=== PATIENT | female | born 1955 | race Caucasian/White ===

== ENCOUNTER → 2020-09-03 | Outpatient (CLI) | payer MEDICARE, OTHER ==
[~2020-09-03] MED LIST: ASPIRIN EC81 M1 PO; CARAFATE 11 GM/10 M1 PO; CYCLOBENZAPRINE10 MG PO; DAILY MULTIPLE1 EACH PO; FIBER500 MG PO; LISINOPRIL40 MG PO; MAGNESIUM250 M1 PO; PROTONIX40 M2 PO; TRAMADOL 50 MG50 MG PO
== END ==
LOC: M.LAB 10:43
PROVIDERS: ATTEND Surgery
DX: Z01.812 Encounter for preprocedural laboratory examination (principal); Z20.828 Contact with and (suspected) exposure to other viral communicable diseases

== ENCOUNTER 2020-09-06 06:38 | Observation (INO) | payer MEDICARE, OTHER ==
[~2020-09-06] VITALS: Ht 160 cm; Wt 104.3 kg
--- NOTE | ~2020-09-06 | OP ---
[facility] [address] [place] [address] OPERATIVE REPORT Name: ROBERTO CALLEJAS Room: [address] [place]#: [id number] Admission: 09/06/20 Attend Phys: Jerrod Gandara Discharge: Date of : 51 Report #: [id number] THIS REPORT FOR: cc: Tamela Shields MD, Melissa MD ~ Jerrod Gandara MD DATE OF SERVICE: 09/06/2020 PREOPERATIVE DIAGNOSIS: Paraesophageal hernia. POSTOPERATIVE DIAGNOSIS: Paraesophageal hernia. OPERATION: Laparoscopic repair of hiatal hernia with mesh implantation with partial fundoplication. SURGEON: Jerrod Gandara MD ANESTHESIA: General. ESTIMATED BLOOD LOSS: 20 mL. SPECIMEN: None. DESCRIPTION OF PROCEDURE: After informed consent was obtained, the patient was brought to the operating room and placed supine. SCDs were placed and working, preoperative antibiotics were administered, general anesthesia was induced. The abdomen was prepped and draped in the usual sterile fashion. A 1 mm incision was made in the left upper quadrant. Veress needle was inserted. Pneumoperitoneum was established. A left periumbilical 10 mm trocar was placed. I then placed a left-sided 8 mm trocar and 2 right sided 5 mm trocars, all under direct vision. A Shellie retractor was inserted in the epigastrium and this retracted the liver anteriorly and superiorly. This allowed visualization of the hiatus. The pars flaccida was incised. Cautery dissection was made up to the right elian. I then began work to reduce a giant paraesophageal hernia. The peritoneum was incised along the edge of the crura and the hernia sac was fully reduced anteriorly and posteriorly. I identified the distal esophagus. A [place] drain was placed around the distal esophagus. The hernia sac having been completely reduced I then ligated the short gastric vessels using the LigaSure. There was excellent hemostasis. This allowed for floppy movement of the fundus. Cruroplasty was then performed using an 0 V-Loc suture. This closed the crura nicely. I then inserted two 1 cm Phasix mesh pledgets. These were placed on each side of the crura and a single 2-0 Ethibond suture was placed through the mesh, which acted as [place] [address] OPERATIVE REPORT Name: ROBERTO CALLEJAS Room: [address] [place]#: [id number] Admission: 09/06/20 Attend Phys: Jerrod Gandara Discharge: Date of : 51 Report #: [id number] The fundus of the stomach was then brought posteriorly around the esophagus. 270-degree partial fundoplication was performed. Two sutures were placed on each side of the esophagus. This was a 2-0 Ethibond. This completed the wrap. The liver was then placed back into its normal position. The ports were removed under direct vision. The skin was closed with 4-0 Monocryl. The fascia at the 10 mm port was closed with a [id number] 0 Vicryl. Skin was closed with 4-0 Monocryl and the incisions were sealed with Steri-Strips. COMPLICATIONS: None. DISPOSITION: The patient was taken to recovery in satisfactory condition. By: [id number] Gandara MD /nt
[2020-09-06 09:37] LABS: HEMATOCRIT 40.8 % (37.0-47.0); HEMOGLOBIN 13.3 gm/dL (12.0-15.0); MCHC 32.7 g/dL (28.0-37.0); MCV 82.6 fL (80.0-100.0); MPV 8.2 fl. (7.2-11.1); RBC 4.93 mil/uL (4.20-5.00); RDW-CV 16.9 % (10.5-14.5); WBC 6.7 thou/uL (4.0-11.0)
[2020-09-06 09:44] LABS: CALCIUM 9.3 mg/dL (8.5-10.1); CREATININE 1.1 mg/dL (0.6-1.3); POTASSIUM 3.8 mmol/L (3.5-5.1)
--- NOTE | 2020-09-06 10:28 | EKG ---
[place] [address] ELECTROCARDIOGRAM REPORT Name: ROBERTO CALLEJAS Room: [address] M.R.#: [id number] Admission: 09/06/20 Attend Phys: Jerrod Lion Discharge: Date of : 51 Date of Service: 09/06/20 0900 Report #: [id number] THIS REPORT FOR: //name// [facility] Test Date: 2020-09-06 Test Time: 09:00:40 Pat Name: ROBERTO CALLEJAS Department: Room: [place] [address] Gender: F Real Estate Legal Assistant: : 1955 Requested By: Jerrod Gandara Order Number: [id number] Leonor MD: Jaswinder Kenney Measurements Intervals [place] Rate: 99 P: 31 CA: 178 QRS: 13 QRSD: 86 T: 22 QT: 354 QTc: 455 Interpretive Statements Sinus rhythm Borderline low voltage, extremity leads No previous ECG available for comparison Electronically Signed On 09-06-2020 10:27:57 STILE RIPSAW OPERATOR by Jaswinder Kenney [email or web address] <ELECTRONICALLY SIGNED> By: Jaswinder Kenney MD, [facility] 09/06/20 1027 9 09 Jaswinder Kenney MD, [facility] /EPI
[2020-09-06 16:28] VITALS: BP 113/60; BP 126/65
--- NOTE | 2020-09-06 17:57 | NUR ---
PT ARRIVED TO FLOOR ABOUT 1430 FROM PACU. PT A&Ox4. VITALS STABLE. IV PATENT, INFUSING. PAIN CONTROLLED. 6 LAP SITES C/D/I. HAS NOT GOT UP TO WALK. TOLERATING CLEAR LIQUIDS. CALL LIGHT WITHIN REACH. WILL CONTINUE TO MONITOR.
[2020-09-06 20:00] VITALS: BP 150/87
--- NOTE | 2020-09-06 22:20 | NUR ---
PT CO SHARP PAIN IN R SIDE OF CHEST STERNUM TO R SHOULDER RADIATING. WORSE WITH INSPIRATION SHE STATES. VSS. EKG OBTAINED NSR. MORPHINE GIVEN IV WITH GOOD RELIEF. DR SARAH NOTIFIED ABOUT PT R CHEST PAIN AND UNABLE TO VOID. ORDERS TO BLADDERSCAN AND STRAIGHT CATH PRN RECEIVED. DR SARAH STATES R SIDED CHEST PAIN TO BE EXPECTED WITH HER SURGERY. PT INFORMED OF DR PARRY. DENIES NEEDS AT PRESENT, RESTING COMFORTABLY. CALL LITE IN EASY REACH.
[2020-09-07 01:02] VITALS: BP 150/84
[2020-09-07 05:27] VITALS: BP 116/63
[2020-09-07 07:30] VITALS: BP 126/51
--- NOTE | 2020-09-07 07:32 | NUR ---
PT SLEPT FAIRLY WELL OVERNIGHT,RECEIVING IV PAIN MED FOR CO R SIDE CHEST PAIN. LFA SL, RFA IVF INFUSING PER PUMP. CONT PULSE OX ON OVERNIGHT, ON ROOM AIR AT THIS TIME. HS ACCUCHECK. UP WITH SBA TO BR, STATES SHE FEELS LIKE SHE EMPTIED HER BLADDER WELL THIS MORNING. ABLE TO USE CALL LITE AND MAKE NEEDS KNOWN. LAP SITE INTACT, NO NEW DRNG NOTED OR BRUISING OVERNIGHT.
[2020-09-07 10:35] VITALS: BP 126/51
[2020-09-07 10:39] VITALS: BP 126/51
[2020-09-07 11:44] VITALS: BP 126/51
--- NOTE | 2020-09-07 11:46 | NUR ---
DISCHARGED TO HOME IN STABLE CONDITION. PT VERBALIZED UNDERSTANDING TO ALL DISCHARGE INSTRUCTIONS AND FOLLOW UP DOCTOR VISITS. BOTH IV RIGHT AND LEFT FOREARM DC'D WITH CATH CANNULA INTACT. PRESSURE APPLIED UNTIL BLEEDING CEASED AND COTTON BALL AND PAPER TAPE APPLIED. DISCHARGED WITH FRIEND. ALL BELONGINGS SENT HOME WITH HER.
--- NOTE | 2020-09-09 15:03 | EKG ---
[place] [address] ELECTROCARDIOGRAM REPORT Name: ROBERTO CALLEJAS Room: [address] M.R.#: [id number] Admission: 09/06/20 Attend Phys: Jerrod Lion Discharge: 09/07/20 Date of : 51 Date of Service: 09/06/202037 Report #: [id number] THIS REPORT FOR: //name// [facility] Test Date: 2020-09-06 Test Time: 20:38:41 Pat Name: ROBERTO CALLEJAS Department: Room: [address] Gender: F Management Retail Intern: KATHARINE : 1955 Requested By: Jerrod Gandara Order Number: [id number] Leonor MD: Gorge Bell Measurements Intervals [place] Rate: 94 P: 35 PA: 140 QRS: -1 QRSD: 90 T: 1 QT: 353 QTc: 442 Interpretive Statements Sinus rhythm Compared to ECG 09/06/2020 09:00:40 No significant changes Electronically Signed On 09-09-2020 15:03:00 PER DIEM PHYSICAL THERAPIST ASSISTANT by Gorge Bell [email or web address] <ELECTRONICALLY SIGNED> By: Gorge Bell MD, FAC 09/09/20 1503 37 37 Gorge Bell MD, [facility] /EPI
== END 2020-09-07 11:10 | disposition home or self-care (01) ==
LOC: M.PRE 06:38 → M.3W 08:15 → M.TBA 08:15 → M.3W 14:02
PROVIDERS: ADMIT Surgery; ATTEND Surgery
DX: K44.9 Diaphragmatic hernia without obstruction or gangrene (principal); K21.9 Gastro-esophageal reflux disease without esophagitis; I10 Essential (primary) hypertension; Z79.899 Other long term (current) drug therapy